=== PATIENT | male | born 1995 | race Caucasian/White ===

== ENCOUNTER 2023-06-06 14:01 | Outpatient (OUT) | payer OTHER, SELFPAY ==
--- NOTE | 2023-06-06 14:10 | US_ITS ---
Patient Name: GABRIELLA TANG MR#: [id number] : 1995 Exam Date: 06/06/2023 Ordering Doctor: DR Pj Lopez . RADIOLOGY REPORT PROCEDURE: US BREAST RT LIMITED COMPARISON: None. INDICATIONS: breast mass N63.0 TECHNIQUE: Breast ultrasound was performed, with evaluation focusing only on specific areas of concern. FINDINGS: DIAGNOSTIC CATEGORY 1--NEGATIVE. RIGHT BREAST: No suspicious finding. RECOMMENDATIONS: CLINICAL EVALUATION. PLEASE NOTE: A NORMAL ULTRASOUND EXAMINATION DOES NOT EXCLUDE THE POSSIBILITY OF BREAST CANCER. A CLINICALLY SUSPICIOUS PALPABLE LUMP SHOULD BE BIOPSIED. Dictated by: Kaz Johnson M.D. on 06/06/2023 at 16:16 Approved by: Kaz Johnson M.D. on 06/06/2023 at 16:18
== END 2023-06-06 14:02 | disposition home or self-care (01) ==
LOC: US 14:05
PROVIDERS: PCP Family Medicine; Visit Provider Family Medicine
DX: N63.0 Unspecified lump in unspecified breast (principal)
CPT/HCPCS: 76642

== ENCOUNTER 2023-09-17 07:35 | Outpatient (OUT) | payer OTHER, SELFPAY ==
[2023-09-17 08:03] LABS: Basophils Absolute Auto 0.1 10^3/uL (0.0-0.1); Eosinophils Absolute Auto 0.2 10^3/uL (0.0-0.7); Eosinophils Percent Auto 3.5 % (0.9-7.0); Hematocrit 48.1 % (42.0-54.0); Hemoglobin 16.3 g/dL (14.0-18.0); Immature Granulocytes Abs Auto 0.05 10^3/uL (0.00-0.03); Immature Granulocytes Pct Auto 0.7 % (0.0-0.5); Lymphocytes Absolute Auto 2.3 10^3/uL (1.2-3.8); Lymphocytes Percent Auto 33.4 % (20.5-60.0); Mean Corpuscular HGB Conc 33.9 g/dL (29.9-35.2); Mean Corpuscular Hemoglobin 30.1 pg (25.9-34.0); Mean Corpuscular Volume 88.9 fL (80.0-94.0); Mean Platelet Volume 9.9 fL (9.5-13.5); Monocytes Absolute Auto 0.7 10^3/uL (0.3-0.8); Monocytes Percent Auto 9.4 % (1.7-12.0); Neutrophils Absolute Auto 3.6 10^3/uL (1.4-6.5); Platelet Count 246 10^3/uL (150-450); Red Blood Count 5.41 10^6/uL (4.70-6.10); Red Cell Distribution Width 12.6 % (11.0-15.0); White Blood Count 6.9 10^3/uL (4.0-11.0)
[2023-09-17 08:18] LABS: Estimated Average Glucose 100 mg/dL; Glycohemoglobin A1C 5.1 % (4.5-6.2)
[2023-09-17 08:54] LABS: Alanine Aminotransferase 44 U/L (16-63); Albumin Globulin Ratio 1.2; Alkaline Phosphatase 91 U/L (46-116); Anion Gap 10.6; Aspartate Amino Transferase 23 U/L (15-37); BUN Creatinine Ratio 12.6; Bilirubin Total 0.9 mg/dL (0.2-1.0); Calcium 9.7 mg/dL (8.5-10.1); Carbon Dioxide 30.2 mmol/L (21.0-32.0); Chloride 102 mmol/L (98-107); Chol HDL Ratio 4.1; Cholesterol 234 mg/dL (<=200); Estimated GFR (African America >60 (>=60); Estimated GFR (Non-African Ame >60 (>=60); Globulin 3.4 g/dL; Glucose 107 mg/dL (74-106); HDL Cholesterol 57 mg/dL (40-60); Potassium 3.8 mmol/L (3.5-5.1); Sodium 139 mmol/L (136-145); Total Protein 7.4 g/dL (6.4-8.2); Triglycerides 130 mg/dL (<=150)
== END 2023-09-17 07:36 | disposition home or self-care (01) ==
LOC: LAB 07:36
PROVIDERS: PCP Family Medicine; Visit Provider Family Medicine
DX: Z00.00 Encounter for general adult medical examination without abnormal findings (principal); E78.5 Hyperlipidemia, unspecified; R73.09 Other abnormal glucose
CPT/HCPCS: 36415; 80053; 80061; 83036; 85025

== ENCOUNTER 2024-01-13 13:52 | Outpatient (OUT) | payer OTHER, SELFPAY ==
--- NOTE | 2024-01-13 | XR_ITS ---
The [address] [address] Patient Name: GABRIELLA TANG MRN: [id number] date: 1995 Sex: M Assigned Patient Location: Current Patient Location: Accession/Order Number: [id number] Exam Date: 01/13/2024 13:58 Report Date: 01/14/2024 16:14 At the request of: ARSALAN SERNA Procedure: XR foot RT min 3V PROCEDURE: XR foot RT min 3V COMPARISON: None. HISTORY: RIGHT FOOT PAIN FINDINGS: BONES:No fracture, acute abnormality, or significant arthropathy. Minimal enthesopathic spurring at the achilles insertion SOFT TISSUES:Negative. No visible soft tissue swelling. EFFUSION:None visible. OTHER: Negative. XR/XR foot RT min 3V IMPRESSION: Minimal calcaneal enthesopathy Electronically authenticated by: JAYSON HWANG Date: 01/14/2024 16:14
== END 2024-01-13 13:53 | disposition home or self-care (01) ==
LOC: EC 13:52
PROVIDERS: PCP Family Medicine; Visit Provider Podiatrist Foot & Ankle Surgery
DX: M79.671 Pain in right foot (principal); M77.31 Calcaneal spur, right foot
CPT/HCPCS: 73630

== ENCOUNTER 2024-01-27 14:42 | Outpatient (OUT) | payer OTHER, SELFPAY | END 2024-01-27 14:43 | disposition home or self-care (01) | PROVIDERS: PCP Family Medicine; Visit Provider Surgery | DX: Z01.818 Encounter for other preprocedural examination (principal); N62 Hypertrophy of breast ==

== ENCOUNTER 2024-02-04 08:52 | Day surgery (SDC) | payer OTHER, SELFPAY ==
[2024-01-27 15:04] VITALS: BP 128/82; PULSE 62; TEMP 36.3; O2SAT 99; BMI 33.8
[2024-02-04] VITALS (10 sets, daily range): BP systolic 120–130; BP diastolic 71–91; PULSE 71–82; TEMP 36.5; O2SAT 95–97; BMI 34.0
--- NOTE | 2024-02-04 | OP_ITS ---
OPERATION DATE: 02/04/2024 PREOPERATIVE DIAGNOSIS: Bilateral painful, enlarging gynecomastia. POSTOPERATIVE DIAGNOSIS: Bilateral painful, enlarging gynecomastia. PROCEDURE: Excision gynecomastia bilateral breasts. SURGEON: Per Gongora M.D. ANESTHESIA: General with laryngeal mask airway, as well as local with Exparel solution. INDICATIONS AND CONSENT: Patient is a 28-year-old male with over six month history of painful gynecomastia, initially began on the right, but then occurred on the left as well. Indications, risks, benefits, alternatives of proceeding with excisional biopsy under anesthesia were explained extensively to the patient including the risks of bleeding, infection, scarring, pain, recurrence and need for further surgery or anesthetic complications. All of his questions were answered. Informed consent was obtained. PROCEDURE: Patient brought to the operating room and placed in the supine position. General anesthesia was induced. He was prepped and draped in the usual sterile fashion. A curvilinear incision was made in the upper outer edge of the right areolar border, carried down to subcutaneous tissue using sharp dissection, as well as needle tip electrocautery. The superior and inferior skin flaps were then raised. The thickened breast tissue was encountered. It was grasped with an Allis clamp. It was excised using the needle tip electrocautery and sent off to Pathology. It was approximately 3 cm in greatest diameter on the right side. Hemostasis was achieved with electrocautery. The wound was irrigated. The subcutaneous tissue was re-approximated with interrupted 3-0 Monocryl suture. The skin was then closed with a running 4-0 subcuticular Monocryl suture. The left side was excised in identical fashion. It measured approximately 2 cm in greatest diameter. It was closed in identical fashion. Both incisions were covered with Dermabond skin glue, as well as sterile pressure dressing. Sponge and needle counts were correct x3 per nursing personnel. Patient tolerated procedure well, was sent to recovery room in good condition. CC: Pj Lopez M.D. GENNY
[2024-02-04] MEDS: LACTATED RINGER'S SOLUTION 1,000 ML 50 ML IV (09:24)
[2024-02-04] MEDS: CEFAZOLIN SODIUM 2 GM/50 ML D5W PREMIX IV (10:09)
[2024-02-04] MEDS: BUPIVACAINE LIPOSOME/PF 266 MG/13.3 ML VIAL INJ (11:18)
[2024-02-04] MEDS: BUPIVACAINE HCL 0.25% PF 25 MG/10 ML VIAL INJ (11:18)
[2024-02-04] MEDS: HYDROMORPHONE HCL 0.5 MG/0.5 ML SYRINGE IV (11:38)
--- NOTE | 2024-02-04 15:58 | PC.NURSE ---
1245- Patient instructed on use of PEP device. Patient verbalized a understanding and uses without difficulty.
== END 2024-02-04 12:50 | disposition home or self-care (01) ==
PROVIDERS: PCP Family Medicine; Visit Provider Surgery
PROC: (CPT 400; principal; 2024-02-04 09:45)
DX: N62 Hypertrophy of breast (principal); N64.4 Mastodynia; E78.5 Hyperlipidemia, unspecified; K21.9 Gastro-esophageal reflux disease without esophagitis
CPT/HCPCS: 19120; 88305; 94667; J0665; J0690; J1100; J1171; J1885; J2250; J2405; J2704; J3010